=== PATIENT | female | born 1990 | race Caucasian/White ===

== ENCOUNTER → 2017-06-23 | Outpatient (REF) | payer OTHER | LOC: M SFHCLERA 15:31 | DX: J02.9 Acute pharyngitis, unspecified (principal) ==

== ENCOUNTER → 2017-08-16 | Outpatient (REF) | payer OTHER | LOC: M LAB REF 13:50 | DX: Z12.4 Encounter for screening for malignant neoplasm of cervix (principal) | CPT/HCPCS: 88142 ==

== ENCOUNTER → 2017-08-24 | Outpatient (CLI) | payer OTHER | LOC: M SMT 08:11 | DX: K81.0 Acute cholecystitis (principal) | CPT/HCPCS: 76775 ==

== ENCOUNTER → 2025-03-15 | Outpatient (CLI) | payer MEDICAID, OTHER ==
[~2025-03-15] MED LIST: DOCU10CA PO; MAPA500T2 PO; MOTR200T44 PO; PRENTAB40 PO; RANI-397 PO; ZOFR4TAB16 PO
[2025-03-15 18:22] LABS: PLATELET COUNT, AUTOMATED 223 10^3/uL (150-450)
[2025-03-15 19:02] LABS: HIV 1&2 SCREEN NEGATIVE (NEGATIVE)
[2025-03-15 19:10] LABS: HEPATITIS C VIRUS ABY INDEX < 0.02 INDEX (<0.8)
== END ==
LOC: M PLALAB 15:04
PROVIDERS: ATTEND Specialist
DX: Z34.81 Encounter for supervision of other normal pregnancy, first trimester (principal)

== ENCOUNTER → 2025-03-15 | Outpatient (REF) | payer OTHER | LOC: M PLALAB 14:52 | PROVIDERS: ATTEND Specialist | DX: Z53.9 Procedure and treatment not carried out, unspecified reason (principal); Z34.81 Encounter for supervision of other normal pregnancy, first trimester ==

== ENCOUNTER → 2025-04-12 | Outpatient (REF) | payer MEDICAID, OTHER ==
[2025-04-12 11:55] LABS: Trichomonas vaginalis (AMP) NOT DETECTED (NEGATIVE)
[2025-04-12 12:20] LABS: GC DNA AMPLIFICATION NEGATIVE (NEGATIVE)
== END ==
LOC: M SFHCWAGY 10:14
PROVIDERS: ATTEND Specialist
DX: Z34.81 Encounter for supervision of other normal pregnancy, first trimester (principal)

== ENCOUNTER → 2025-05-03 | Outpatient (CLI) | payer MEDICAID | LOC: M WHC 11:40 | PROVIDERS: ATTEND Obstetrics & Gynecology | DX: Z34.92 Encounter for supervision of normal pregnancy, unspecified, second trimester (principal); Z3A.18 18 weeks gestation of pregnancy ==

== ENCOUNTER → 2025-05-31 | Outpatient (REF) | payer MEDICAID, OTHER ==
[2025-05-31 14:54] LABS: Trichomonas vaginalis (AMP) NOT DETECTED (NEGATIVE)
[2025-05-31 15:18] LABS: GC DNA AMPLIFICATION NEGATIVE (NEGATIVE)
== END ==
LOC: M SFHCWAGY 13:00
PROVIDERS: ATTEND Nurse Practitioner Family
DX: N89.8 Other specified noninflammatory disorders of vagina (principal)